=== PATIENT | male | born 2000 | race Asian ===

== ENCOUNTER 2019-06-19 17:18 | Emergency (ER) | payer OTHER ==
[2019-06-19] MEDS ORDERED: methylPREDNISolone 125 MG* 2 ML VIAL IV ONE (17:21)
[2019-06-19] MEDS ORDERED: Famotidine IV* 10 MG/ML 2 ML (20 mg) IV SLOW PU ONE (17:21)
--- NOTE | 2019-06-19 19:55 | ED ---
Allergic Reaction/Systemic - HPI Summary HPI Summary: Patient is a 19 y/o M presenting to the ED via EMS for a chief complaint of allergic reaction. Patient received an injection for allergies at [facility] around 15:00 and told to return after an hour to assess the patient's reaction. After being assessed an hour later, the patient was found to have wheezing and told to go the ED. Patient had previously been receiving these injections since December without complications. On route to the ED, patient was given epinephrine, pepcid, Benadryl, and a duo nebulizer treatment which improved his symptoms. Per EMS, patient was hypertensive. Patient denies rash, nausea, vomiting, or diarrhea. PSHx is significant for tonsillectomy, but patient denies any PMHx. Patient denies tobacco use or drug use, but admits occasional alcohol use. He is studying [employer] science at [employer]. Allergies noted. Medications reviewed. - History of Current Complaint Chief Complaint: EDAllergicReaction Time Seen by Provider: 06/19/19 17:21 Hx Obtained From: Patient Onset/Duration: Sudden Onset, Resolved Timing: Constant Severity Initially: Mild Severity Currently: Mild Pain Intensity: 0 Pain Scale Used: 0-10 Numeric Location: Diffuse Aggravating Factor(s): Nothing Alleviating Factor(s): Epinephrine, Other - Duo nebulizer, Benadryl, pepcid Associated Signs And Symptoms: Positive: Other: - Positive wheezing. Negative: Nausea, Rash, Vomiting - Allergies/Home Medications Allergies/Adverse Reactions: Allergies Allergy/AdvReac Type Severity Reaction Status Date / Time environmental Allergy Unknown Uncoded 06/19/19 17:22 Reaction Details Home Medications: Home Medications Cetirizine* [ZyrTEC 10 MG TAB*] 10 mg PO DAILY 06/19/19 [History Confirmed 06/19] PMH/Surg Hx/FS Hx/Imm Hx Previously Healthy: Yes Endocrine/Hematology History: Denies: Hx Diabetes Cardiovascular History: Denies: Hx Hypercholesterolemia, Hx Hypertension Sensory History: Denies: Hx Legally Blind, Hx Deafness Opthamlomology History: Denies: Hx Legally Blind EENT History: Denies: Hx Deafness - Surgical History Surgical History: Yes Surgery Procedure, Year, and Place: Tonsillectomy Infectious Disease History: No Infectious Disease History: Denies: Traveled Outside the [place] in Last 30 Days - Family History Known Family History: Negative: Hypertension, Diabetes - Social History Occupation: Student Lives: Alone Alcohol Use: Weekly Hx Substance Use: No Substance Use Type: Reports: None Hx Tobacco Use: No Smoking Status (MU): Never Smoked Tobacco Review of Systems Positive: Other - Positive hypertension Positive: Other - Positive wheezing, resolved Negative: Vomiting, Diarrhea, Nausea Negative: Rash All Other Systems Reviewed And Are Negative: Yes Physical Exam - Summary Physical Exam Summary: Constitutional: Well-developed, Well-nourished, Alert. (-) Distressed Skin: Warm, Dry HENT: Normocephalic; Atraumatic Eyes: Conjunctiva normal Neck: Musculoskeletal ROM normal neck. (-) JVD, (-) Stridor, (-) Tracheal deviation Cardio: Rhythm regular, rate normal, Heart sounds normal; Intact distal pulses; Radial pulses are 2+ and symmetric. (-) Murmur Pulmonary/Chest wall: Effort normal. (-) Respiratory distress, (-) Wheezes, (-) Rales Abd: Soft, (-) tenderness, (-) Distension, (-) Guarding, (-) Rebound Musculoskeletal: (-) Edema Lymph: (-) Cervical adenopathy Neuro: Alert, Oriented x3 Psych: Mood and affect Normal Triage Information Reviewed: Yes Vital Signs On Initial Exam: Initial Vitals Temp Pulse Resp BP Pulse Ox 98.7 F 96 16 141/74 99 06/19/19 17:19 06/19/19 17:19 06/19/19 17:19 06/19/19 17:19 06/19/19 17:19 Vital Signs Reviewed: Yes Procedures - Sedation Patient Received Moderate/Deep Sedation with Procedure: No Diagnostics - Vital Signs Vital Signs Temp Pulse Resp BP Pulse Ox 06/19/19 17:48 103 127/75 100 06/19/19 17:28 90 98 06/19/19 17:19 98.7 F 93 16 141/74 98 - Laboratory Lab Statement: Any lab studies that have been ordered have been reviewed, and results considered in the medical decision making process. Allergic Reaction Course/Dx - Course Course Of Treatment: Patient is here with anaphylaxis secondary to an allergy shot. Patient received epinephrine, DuoNeb, Benadryl at [facility]. Patient was near a symptomatically on arrival. Patient was given Pepcid and steroids and monitored for 2 hours with no recurrence of symptoms. Patient are he has an EpiPen at home and was encouraged to take it with him everywhere he goes. - Diagnoses Provider Diagnoses: Anaphylaxis Discharge ED - Sign-Out/Discharge Documenting (check all that apply): Patient Departure - Discharge Plan Condition: Stable Disposition: HOME Patient Education Materials: Anaphylaxis (ED) Referrals: [facility] - Paul ORELLANA [Primary Care Provider] - Additional Instructions: FOLLOW UP WITH [facility] IN 1-3 DAYS. RETURN TO THE EMERGENCY DEPARTMENT IF YOU HAVE TROUBLE BREATHING, NAUSEA, VOMITING, OR ANY OTHER CONCERNING SYMPTOMS. USE THE EPIPEN YOU HAVE AT HOME IF YOU HAVE SIMILAR SYMPTOMS. - Billing Disposition and Condition Condition: STABLE Disposition: Home - Attestation Statements Document Initiated by Katerynaibe: Yes Documenting Scribe: Kyleigh Richards Provider For Whom Wilbur is Documenting (Include Credential): Jamari Glasgow MD Scribe Attestation: Kyleigh Pride, scribed for Jamari Glasgow MD on 06/22/19 at 0917. Scribe Documentation Reviewed: Yes Provider Attestation: The documentation as recorded by the Kyleigh escalante accurately reflects the service I personally performed and the decisions made by , Jamari Glasgow MD Status of Scribe Document: Viewed
[2019-06-19 20:17] VITALS: BP 113/85
== END 2019-06-19 20:17 | disposition home or self-care (01) ==
LOC: ED 17:18
DX: T80.52XA Anaphylactic reaction due to vaccination, initial encounter (principal); T50.Z95A Adverse effect of other vaccines and biological substances, initial encounter; Y92.9 Unspecified place or not applicable; J30.9 Allergic rhinitis, unspecified
CPT/HCPCS: 96374; 96375; 99283; J2930